=== PATIENT | female | born 2000 | race Caucasian/White ===

== ENCOUNTER 2025-06-13 15:08 | Emergency (ER) | payer OTHER, SELFPAY ==
[2025-06-13 15:20] VITALS: BP 134/74; PULSE 74; RESP 16; TEMP 36.4; O2SAT 97; BMI 51.7
--- NOTE | 2025-06-13 15:24 | ED_ITS ---
HPI - Female Genitourinary General Chief complaint: Medical Clearance Stated complaint: Stomach pain Time Seen by Provider: 06/13/25 15:24 Source: patient Mode of arrival: ambulatory Limitations: no limitations History of Present Illness ED Provider: Shannon Brizuela PA-C HPI Narrative: Patient reports her last menstrual period started on 2025-05-07. She was expecting her next period on 2025-06-02 but has not had normal bleeding. She experienced brief bleeding yesterday which she does not consider a true period. She performed two home tests on the same day last week: the morning test was positive and the later-day test was negative. In clinic today, urine test was negative. She reports mild cramping and breast tenderness. She requests a blood test for confirmation. Review of Systems: ? Genitourinary: reports missed period. ? Breast: tenderness present. ? Reports mild cramping. Related Data Allergies Allergy/AdvReac Type Severity Reaction Status Date / Time No Known Allergies Allergy Verified 06/13/25 15:22 Review of Systems Review of Systems: Yes all other systems are reviewed and are negative PMFSH Past Medical History Attestation statement: The following information was validated with the patient. Source: old records reviewed and nursing notes reviewed Social History Social History Advance Directives: No Advance Directives Information Provided: No Do you have a plan to hurt others: No Plan Physical Exam Exam: Exam: General: Appears in no acute distress, appears well nourished body habitus is obese, appears stated age. No septic or ill-appearing. Vitals reviewed normal, PMH/Social and Surgical hx reviewed including allergies and current medications. Head: Normocephalic, no obvious trauma or skin lesions noted. Eyes: EOMI ENMT: moist oral mucosa Neck: trachea midline Cardiovascular: peripheral perfusion normal, Regular heart rate Respiratory: no respiratory distress, lungs clear Abdomen: nondistended, obese, no bladder or CVA tenderness Extremities: warm and moving without difficulty Psych: Cooperative Neuro: Alert and oriented. Vital Signs: Vital Signs: Last Vital Signs Temp 97.6 F 06/13/25 16:07 Pulse 74 06/13/25 16:07 Resp 16 06/13/25 16:07 BP 134/74 06/13/25 16:07 Pulse Ox 97 06/13/25 16:07 O2 Del Method Room Air 06/13/25 16:07 BMI result Body Mass Index 51.7 Medical Decision Making Medical Decision Making [facility] Narrative: This is a 25-year-old female presenting with late menses and conflicting home tests. In-clinic urine test is negative. She does not report any genitourinary symptoms such as dysuria, hematuria, or abnormal discharge, and has no concerns for sexually transmitted infections. Given the absence of concerning genitourinary symptoms and a negative urine test, further diagnostic workup, including blood testing, is not indicated at this time. The patient is advised to follow up with [facility] if menses does not resume or if new symptoms develop. Problem #1: Late menses Assessment: Over one week late for expected menses. Negative urine test in clinic today. Mild breast tenderness and cramping. Plan: * Discussed that blood testing is typically performed only after a positive urine test; not indicated today based on negative urine result. * Patient advised to monitor for onset of menstruation; if period does not begin or if she develops new symptoms, follow up with her [facility]. Differential Diagnosis Differential Diagnoses: The differential diagnosis associated with the presentation includes , threatened , UTI, STI, primary amenorrhea Admission/Observation Consideration of admission/observation: Escalation of care including admission/observation considered Lab Data [facility] Lab Attestation statement: I reviewed the patient's lab results. Labs: Lab Results 06/13/25 Range/Units 15:33 Urine Color Yellow Urine Appearance Clear Urine pH 6.5 (5.0-9.0) Ur Specific [place] >= 1.030 H (1.005-1.025) Urine Protein Negative (Neg-Trace) mg/dL Urine Glucose (UA) Negative (Negative) mg/dL Urine Ketones Trace (Negative) mg/dL Urine Blood Trace H (Negative) Urine Nitrite Negative (Negative) Ur Leukocyte Esterase Negative (Negative) Urine RBC 0-2 (0-2) /HPF Urine WBC 0-5 (0-5) /HPF Ur Squamous Epith Cells 3-5 (0-2) /HPF Urine Bacteria 1+ (None Seen) Hyaline Casts 0-2 (0-2) /LPF Urine Test NEGATIVE (NEGATIVE) Tests considered The following testing was considered but not selected: would have considered STI/ testing had patient had concerns/ sxs Chronic Conditions Patient?s care impacted by: Other Social Determinants Patient?s care significantly limited by Social Determinants of Health including: Other Social Determinant of Health Discharge Plan Discharge Clinical Impression: Amenorrhea Patient Disposition: Home, Self-Care Additional Instructions: Your test is negative. No UTI. Referrals: [facility] [place] [facility] [place] [Provider Group] Clinical Impression: Amenorrhea Interventions: ED Discharge Assessment Last Done: 06/13/25 16:07 Discharge Date/Time: 06/13/25 16:08 Print Language: Ugandan
--- OUTSIDE RECORDS SUMMARY | 2025-06-13 15:37 | XMS_ITS | Clinical Summary ---
Author Organization [facility] Address [address] [place] [address] Phone Care Team Providers Care Rug Receiving Clerk Name Role Phone Shila Souza MD Primary Care Provider [phone] Allergies No known active allergies Medications acetaminophen (TYLENOL) 325 mg tablet Take 1 tablet (325 mg total) by mouth every 6 (six) hours. 12/18/2023 Active docusate sodium (COLACE) 100 mg capsule Take 1 Capsule by mouth 2 times daily for 10 days. 05/23/2023 Active no.144-folic acid () 400 mcg tablet,chewable Chew 1 tablet 1 (one) time each day. Active cholecalciferol (VITAMIN D-3) 1,250 mcg (50,000 unit) capsule Take 1 capsule (50,000 Units total) by mouth 1 (one) time per week. 11/07/2023 Active cyanocobalamin (VITAMIN B-12) 1,000 mcg tablet Take 1 tablet (1,000 mcg total) by mouth 1 (one) time each day. 02/19/2024 Active ergocalciferol, vitamin D2, 50 mcg (2,000 unit) capsule Take 50 mcg by mouth 1 (one) time each day. 02/14/2024 Active norethindrone (TUYET,HELEN,HE ATHER,MICRONOR) 0.35 mg tablet Take 1 tablet (0.35 mg total) by mouth 1 (one) time each day. 84 tablet 4 12/16/2024 12/17/19 26 Active ferrous gluconate (FERGON) 324 mg (38 mg iron) tablet Take 1 tablet (324 mg total) by mouth every other day. 45 each 1 12/16/2024 06/14/20 25 Active tirzepatide (Mounjaro) 2.5 mg/0.5 mL injectionIndicat ions:Class 3 severe obesity due to excess calories with body mass index (BMI) of 50.0 to 59.9 in adult, unspecified whether serious comorbidity present ([facility] V24, [facility] V28),Prediabetes Inject 0.5 mL (2.5 mg total) under the skin every 7 (seven) days. 2 mL 05/26/2025 Active Active Problems Problem Noted Date Diagnosed Date Abnormal Pap smear of cervix 11/07/2024 Asthma, well controlled 11/07/2024 Obstructive sleep apnea syndrome 05/26/2024 Severe obesity 05/26/2024 PCOS (polycystic ovarian syndrome) 05/21/2020 Vitamin B12 deficiency 03/01/2019 Vitamin D deficiency 03/01/2019 Resolved Problems Problem Noted Date Diagnosed Date Resolved Date Vaginal discharge 12/06/2021 12/16/2024 Overview (05/26/2024): Last Assessment & Plan: No evidence of infection. May be from IUD. If not improved, return for further evaluation. Encounters Date Type Department Care Team Description 05/26/2025 1:30 PM EST Office Visit Bariatric Surgery - [address] [phone] Yara Morgan MD Class 3 severe obesity due to excess calories with body mass index (BMI) of 50.0 to 59.9 in adult, unspecified whether serious comorbidity present ([facility] V24, [facility] V28) (Primary Dx); Prediabetes 05/18/2025 Telephone Obstetrics and Gynecology - [address] [phone] Mayra Castrejon CNM 04/21/2025 Telephone Bariatric Surgery [address] [phone] Yara Morgan MD from Last 3 Months Surgical History Surgery Date Site/Laterality Comments OTHER SURGICAL HISTORY 09/22/2022 PROCEDURE: HISTORICAL UNSPECIFIED SURGERY; COMMENT: gastric sleeve - Dr. Morgan OTHER SURGICAL HISTORY 2013 PROCEDURE: [place] UNLISTED PROCEDURE PHARYNX ADENOIDS/TONSILS Medical History Medical History Date Comments CECILIA (obstructive sleep apnea) DX :CECILIA (obstructive sleep apnea) Vitamin D deficiency 03/01/2019 DX:Vitamin D deficiency Vitamin B12 deficiency 03/01/2019 DX:Vitami n B12 deficiency PCOS (polycystic ovarian syndrome) 05/21/2020 DX:PCOS (polycystic ovarian syndrome) Class 3 severe obesity due t o excess calories with serious comorbidity and body mass index (BMI) of 50.0 to 59.9 in adult ([facility] V24, [facility] V28) 02/25/2019 DX:Class 3 severe obesity due to excess calories with serious comorbidity and body mass index (BMI) of 50.0 to 59.9 in adult ([facility]) Migraine with aura DX:Migraine w ith aura Family History Medical History Relation Name Comments Diabetes Father Heart attack Father Thyroid disease Maternal Grandfather Breast cancer Neg Hx Colon cancer Neg Hx Ovarian cancer Neg Hx Relation Name Status Comments Father Maternal Grandfather Maternal Grandmother Alive Mother Alive Social History Tobacco Use Types Packs/Day Years Used Date Smoking Tobacco: Never Smokeless Tobacco: Never Alcohol Use Standard Drinks/Week Comments Not Currently 0 (1 standard drink = 0.6 oz pur e alcohol) Comments Unknown Sex and Gender Information Value Date Recorded Sex Assigned at Not on file Legal Sex Female 10:17 AM EST Gender Identity Not on file Sexual Orientation Not on file Obstetrics History Para Term AB IAB SAB Ectopic Multiple Livin g Live Births 1 1 1 1 Date Outcome GA Total Labor Labor/2nd/3rd Weight Sex Type Anes PTL Christine A1 A5 Name Clin Term Last Filed Vital Signs Vital Sign Reading Time Taken Comments Blood Pressure 103/63 05/26/2025 1:37 PM EST Pulse 72 05/26/2025 1:37 PM EST Temperature 36.6 C (97.8 F) 05/26/2025 1:37 PM EST Respiratory Rate 16 12/16/2024 10:20 AM EDT Oxygen Saturation - - Inhaled Oxygen Concentration - - Weight 125 kg (275 lb) 05/26/2025 1:37 PM EST Height 152.4 cm (5') 05/26/2025 1:37 PM EST Body Mass Index 53.71 05/26/2025 1:37 PM EST Plan of Treatment Upcoming Encounters Date Type Department Care Team (Late st Contact Info) Description 08/19/2025 2:30 PM EST Office Visit Adult Medicine [facility] [place] [address] [place] [address] Bethel Bowman PA [address] [place] [address] 09/08/2025 2:30 PM EDT Office Visit Bariatric Surgery - [address] [place] [address] Yara Morgan MD [address] [place] [phone] Health Maintenance Due Date Last Done Comments Pneumococcal Vaccine: Pediatrics (0 to 5 Years) and At-Risk Patients (6 to 49 Years) (1 of 1 - PPSV23, PCV20, or PCV21) 2007 01/17/2006, 2001, 2001, Additional history exists Cervical Cancer Screening: Pap Smear 2022 Social Influencers of Health Screening 06/10/2022 Depression Screening 07/02/2024 Gonorrhea/Chlamydia Screening 12/03/2024 12/04/2023 COVID-19 Vaccine ( season) 2025 10/27/2021, 12/16/2020, 11/25/2020 Influenza Vaccine (#1) 2025 , 04/19/2023, 07/14/2022, Additional history exists Cholesterol Screening (Lipid Panel) 12/16/2029 12/16/2024, 10/11/2023 DTaP,Tdap,and Td Vaccines (8 - Td or Tdap) 04/10/2034 04/10/2024, 01/30/2013, 01/17/2006, Additional history exists HIB Vaccines Completed 05/19/2002, 07/03, 2001, Additional history exists MMR Vaccines Completed 09/21/2004, 03/17/2002 IPV Vaccines Completed 01/17/2006, 09/30, 2001, Additional history exists Varicella Vaccines Completed 01/22/2007, 03/17/2002 HPV Vaccines Completed 07/31/2013, 03/03, 01/23/2013 Meningococcal ACWY Vaccine Completed 04/26/2017, Hepatitis A Vaccines Completed 11/15/2018, 04/26/20 Hepatitis B Vaccines Completed 07/14/2022, 12/16/2020, 2001, Additional history exists RSV Immunization Adult Patients Completed 05/15/2024 HIV Screening Completed 12/16/2024, 06/20/2023 Hepatitis C Screening Completed 12/16/2024 , 08/30/2023, 04/23/2023 Meningococcal B Vaccine Aged Out No l onger eligible based on patient's age to complete this topic RSV Immunization Patients Under 20 months Aged Out No longer eligible based on patient's age to complete this topic Procedures Procedure Name Priority Date/Time Associated Diagnosis Comments HEPATITIS C ANTIBODY Routine 12/16/2024 11:15 AM EDT Screen for STD (sexually transmitted disease) HIV 1, 2 ANTIBODY, P24 ANTIGEN WITH REFLEX TO DIFFERENTIATION Routine 12/16/2024 11:15 AM EDT Screen for STD (sexually transmitted disease) LIPID PANEL WITH REFLEX TO DIRECT LDL Routine 12/16/2024 11:15 AM EDT Class 3 severe obesity due to excess calories with body mass index (BMI) of 50.0 to 59.9 in adult, unspecified whether serious comorbidity present (CMS/HCC V24, CMS/HCC V28) HM GONORRHEA/CHLAMYDIA SCRREENING Routine 12/04/2023 from Last 3 Months or Most Recently Relevant to Health Maintenance Results * Hepatitis C antibody (12/16/2024 11:15 AM EDT) Hepatitis C Antibody Negative Negative LAB CHEMISTRY METHOD 12/16/2024 4:14 PM EDT [facility] Blood Venous blood specimen / Unknown Venipuncture / Unknown 12/16/2024 11:15 AM EDT 12/16/2024 11:15 AM EDT us Janis Chadwick [facility] BLOOD ORDERABLES Final Result Performing Organization Address [facility] de Phone Number [facility] [address] [place] [address], [place] [phone] * HIV 1,2 antibody, p24 antigen with reflex to differentiation (12/16/2024 11:15 AM EDT) Pathologist [facility] HIV Combo AB/AG Negative Negative LAB CHEMISTRY METHOD 12/16/2024 4:14 PM EDT [facility] Blood Venous blood specimen / Unknown Venipuncture / Unknown 12/16/2024 11:15 AM EDT 12/16/2024 11:15 AM EDT Narrative [facility] - 12/16/2024 4:14 PM EDT This assay is a 4th generation assay allowing for earlier detection of HIV infection by detecting the presence of the HIV-1 p24 antigen as well as the traditional antibodies to HIV type 1 (including group O) and type 2. Use of a 4th generation assay is the current CDC recommendation for HIV screening. us Montenegroie Vicky Winglg [facility] BLOOD ORDERABLES Final Result Performing Organization Address [facility] de Phone Number [facility] [address] [place] [address], [place] [phone] * (ABNORMAL) Lipid panel with reflex to direct LDL (12/16/2024 11:15 AM EDT) Pathologist [facility] Cholesterol 150 0 - 200 mg/dL LAB CHEMISTRY METHOD 12/16/2024 3:04 PM EDT [facility] Triglycerides 177(H) 0 - 150 mg/dL LAB CHEMISTRY METHOD 12/16/2024 3:04 PM EDT [facility] HDL 46 >=40 mg/dL LAB CHEMISTRY METHOD 12/16/2024 3:04 PM EDT [facility] LDL Calculated 69 0 - 100 mg/dL LAB CHEMISTRY METHOD 12/16/2024 3:04 PM EDT [facility] VLDL Cholesterol Attila 35.4 mg/dL LAB CHEMISTRY METHOD 12/16/2024 3:04 PM EDT [facility] Non HDL Chol. (LDL+VLDL) 104 <145 mg/dL LAB CHEMISTRY METHOD 12/16/2024 3:04 PM EDT [facility] Chol/HDL Ratio 3.3 0.0 - 4.4 LAB CHEMISTRY METHOD 12/16/2024 3:04 PM EDT [facility] Blood Venous blood specimen / Unknown Venipuncture / Unknown 12/16/2024 11:15 AM EDT 12/16/2024 11:15 AM EDT Yara Morgan MD LAB BLOOD ORDERABLES Final R esult [facility] [address] [place] [address], * Gonorrhea/Chlamydia Screening (12/04/2023) Gonorrhea/Chla mydia Screening abstracted Historical Provider HEALTH MAINTENANCE Final Result from Last 3 Months or Most Recently Relevant to Health Maintenance Insurance [facility] [facility] Care Teams Rug Receiving Clerk Relationship Specialty Start Date End Date Shila Souza MD [address] [place] [phone] PCP - General Internal Medicine 08/15/24
--- OUTSIDE RECORDS SUMMARY | 2025-06-13 15:37 | XMS_ITS | Clinical Summary ---
Author Organization [facility] Address [address] [address] Phone Care Team Providers Care Neuroscientist Name Role Phone Pcp, Not Required Primary Care Provider Unavaila ble Allergies No known active allergies Medications No known medications Immunizations Immunization Administration Dates Next Due Hepatitis B Adult 07/14/2022,2001 INFLUENZA, SPLIT VIRUS, TRIVALENT PF 03/29/2024 Influenza Quadrivalent Preservative Free IM 04/01,07/14/2022 Social History Tobacco Use Types Packs/Day Years Used Date Smoking Tobacco: Never Assessed Education Answer Date Recorded Are you interested in more education? Not on belia e 10/28/2022 Are you concerned about learning? Not on file 10/28/2022 No 10/28/2022 No 10/28/2022 Digital Access Answer Date Recorded No 11/26/2022 No 11/26/2022 No 11/26/2022 Reliable internet access at home? Not on file 11/26/2022 Device with a working camera? Not on file Intimate Partner Violence Answer Date R ecorded Are you denied basic needs s uch as food, clothing, or medical care? No 04/23/2023 In the past 12 months have y ou been in a relationship with a person who hurts, threatens, or tries to control you? No 04/23/2023 Are you denied basic needs s uch as food, clothing, or medical care? No 04/23/2023 In the past 12 months have y ou been in a relationship with a person who hurts, threatens, or tries to control you? No 04/23/2023 Comments Unknown Sex and Gender Information Value Date Recorded Sex Assigned at Not on file Legal Sex Female 4:07 PM EST Gender Identity Not on file Sexual Orientation Not on file Last Filed Vital Signs Vital Sign Reading Time Taken Comments Blood Pressure 116/80 04/23/2023 11:03 PM EDT Pulse 74 04/23/2023 11:03 PM EDT Temperature 37 C (98.6 F) 04/23/2023 11:03 PM EDT Respiratory Rate 18 04/23/2023 11:03 PM EDT Oxygen Saturation 98% 04/23/2023 11:03 PM EDT Inhaled Oxygen Concentration - - Weight - - Height - - Body Mass Index - - Plan of Treatment Health Maintenance Due Date Last Done Comments Adult Td,Tdap Booster 2001 DEPRESSION SCREENING 2013 SMOKING Hx and SMOKELESS TOBACCO SCREENING 2014 HPV VACCINES (1 - 3-dose series) 01/17/2016 CHLAMYDIA SCREENING 2017 PAP SMEAR 2022 INFLUENZA VACCINE (#1) 2025 , 04/19/2023, 07/14/2022 COVID-19 VACCINE (2024-2 6 season) 2025 HEPATITIS C SCREENING Completed 04/23/2023 HIV ONE-TIME SCREENING (18-6 5 YEARS) Completed 04/23/2023 HEPATITIS A VACCINES Aged Out No long er eligible based on patient's age to complete this topic HIB VACCINES Aged Out No longer eligi ble based on patient's age to complete this topic MENINGOCOCCAL VACCINES (ACWY) Aged Out No longer eligible based on patient's age to complete this topic MENINGOCOCCAL VACCINES (B) Aged Out N o longer eligible based on patient's age to complete this topic PNEUMOCOCCAL VACCINES (0-49 years) Aged Out No longer eligible b ased on patient's age to complete this topic Medical Devices Not on file Procedures Procedure Name Priority Date/Time Associated Diagnosis Comments HEPATITIS C ANTIBODY, QUALITATIVE STAT 04/23/2023 11:28 PM EDT from Last 3 Months or Most Recently Relevant to Health Maintenance Results * Hepatitis C antibody, qualitative (04/23/2023 11:28 PM EDT) HCV NON-REACTIV E NON-REACTI VE [facility] Blood 04/23/2023 11:2 8 PM EDT 04/23/2023 11:35 PM EDT us Malik G Niall ALVAREZ LAB BLOOD BKR ORDERABLES Karuna viktoria Result [facility] [address] [place] [address] from Last 3 Months or Most Recently Relevant to Health Maintenance Insurance [facility] [employer] [facility] [employer] [facility] [employer] [facility] [employer] [facility]ILDR[employer] [facility] [employer] [facility]DR[facility] [employer] [employer] [facility]DR[facility] [employer] [employer] [facility] [employer]ILDR[employer] [facility] [employer] O [employer] EM[employer]OYEES FAMILY [facility] Care Teams Neuroscientist Relationship Specialty Start Date End Date Pcp, Not Required PCP - General 07/14/22 Additional Source Comments The information contained in this document represents components of the legal health record. It is not the complete legal health record.[facility]
[2025-06-13 15:41] LABS: Appearance Urine Clear; Glucose Urine UA Negative (Negative); PH 6.5 (5.0-9.0); Specific Gravity - Urine >= 1.030 (1.005-1.025); UMIC TRIGGER UACC YES
[2025-06-13 15:45] LABS: UPreg QC Valid YES
[2025-06-13 16:07] VITALS: BP 134/74; PULSE 74; RESP 16; TEMP 36.4; O2SAT 97
== END 2025-06-13 16:08 | disposition home or self-care (01) ==
PROVIDERS: Physician Assistant Medical; Emergency Provider Emergency Medicine
DX: N91.2 Amenorrhea, unspecified (principal); R10.9 Unspecified abdominal pain; Z32.02 Encounter for pregnancy test, result negative
CPT/HCPCS: 81001; 81025; 99282